=== PATIENT | male | born 1980 | race Caucasian/White ===

== ENCOUNTER 2025-01-06 00:47 | Day surgery (SDC) | payer BC, SELFPAY ==
[2025-01-01 14:04] VITALS: BMI 25.8
--- NOTE | 2025-01-01 14:11 | PC.NURSE ---
[facility] has started construction of its new state of the art ER which will open Spring 2026. With this, we anticipate parking may be a challenge for some our surgical patients and families. Parking spaces are limited but are available for all Surgical, obstetrics, and ER patients sharing this lot. If you arrive and find you are having a hard time finding a parking space, please note that we understand the challenges, please drive around the hospital and park near Hospital Entrance 1. When you enter this entrance, you can ask a volunteer to direct or take you back to the surgical waiting area to check in. We appreciate everyone?s understanding of these expected challenges while we build for your future. Report to the Outpatient Waiting Room, entrance under the green pavilion located off [address], at time _1100_ on date _[id number]_. Planned Procedure Time: _1pm_.? Time changes happen often and if your time is changed the preop area will call you the afternoon before. - You and your visitor will be asked to self-screen and do not enter if you have any COVID symptoms. Please call surgeon if you need to reschedule. - A mask is optional within the hospital at this time. Clear liquid diet Monday before surgery. Patients may have clear liquids (water, carbonated beverages, clear teas, apple juice) until 3 hours prior to surgery with a maximum of 20 ounces between Midnight and 10am.. - No food from midnight Monday until time of surgery and no smoking, or chewing tobacco (or any form of nicotine). No chewing gum, candy or mints. Take Dulcolax tabs 5mg 2 tablets Monday night and Monday night. Use Fleet enema Monday night and again Monday morning of surgery. Take only the following medications with a SIP of water on the morning of surgery: __None____ DO NOT STOP ANY OF YOUR OTHER PRESCRIPTION MEDICATIONS PRIOR TO SURGERY EXCEPT THE FOLLOWING Hold all vitamins and supplements for 3 days per anesthesiologist. Medications to discontinue per physician Date to take last dose Please no make-up, nail bengali, hairspray, perfume, deodorant, or body powder the day of surgery.? No jewelry (including any body piercings) or valuables the day of surgery, leave them at home.? Please take a shower or bath the night before, or the morning of, surgery with an antibacterial soap.? Wear comfortable, loose fitting clothing.? - Jewelry must be removed prior to entering the operating room.? Rings and piercings that are not removed may be cut off. - The hospital will not accept responsibility for valuables.? - Please leave all valuables, including medications, at home the day of surgery. If you are going home after surgery, a licensed batch mixing truck driver must drive you home.? - NO public transportation without another adult if you receive anesthesia. - We recommend that an adult stay with you for 24 hours following discharge. - We also recommend that you do not drive, make important decision, drink alcoholic beverages, or take any drugs that were not prescribed by your health care provider for at least 24 hours after your discharge time. Follow any additional instructions given to you from your surgeon. Telephone instructions given to ___Guillaume__and asked if any additional questions and then verbalized understanding. Patient advised to call surgeon office or pre surgery nurse liaison [phone] if any additional questions.
[2025-01-06] VITALS (9 sets, daily range): BP systolic 111–134; BP diastolic 69–87; PULSE 57–75; RESP 12–18; TEMP 36.1–36.4; O2SAT 97–100
--- NOTE | 2025-01-06 11:57 | WPDHPUPDATE1 ---
History and Physical Update Update Date/Time: 01/06/25 11:57 History and Physical has been reviewed, including an updated exam of the patient. There are NO changes in the patient's condition. Risks, benefits, and alternatives have been discussed and questions answered. Patient agrees to proceed with procedure.
[2025-01-06] MEDS: ACETAMINOPHEN 500 MG TABLET 1000 MG PO (12:03)
[2025-01-06] MEDS: LACTATED RINGERS 1,000 ML 30 ML IV CONT (12:05)
[2025-01-06] MEDS: KETOROLAC 15 MG/ML VIAL (*BKC) IV PUSH (12:10)
--- NOTE | 2025-01-06 12:36 | WPDANESEPPF ---
Anes - Initial Pre Proc Eval Procedure: Operation Date: 01/06/25 13:00 Proposed Procedures p Rectal Examination Under Anesthesia, Excision Thrombosed External Hemorrhoid, Proctosigmoidoscopy - Armen Hurtado MD Date/Time: 01/06/25 12:36 Surgeon: Armen Hurtado MD Pre Op Diagnosis: thrombosed external hemorrhoid Patient Data Age: 44 Gender: M Height: 1.83 m Weight: 85.3 kg Last Vital Signs Temp 97.6 F 01/06/25 11:35 Pulse 68 01/06/25 11:35 Resp 18 01/06/25 11:35 BP 126/81 01/06/25 11:35 Pulse Ox 97 01/06/25 11:35 O2 Del Method Room Air 01/06/25 11:35 Allergies Allergy/AdvReac Type Severity Reaction Status Date / Time No Known Allergies Allergy Unknown Verified 01/06/25 12:16 Home Medications ?Medication ?Instructions ?Recorded ?Confirmed ?Type No Home Medications 12/30/24 01/01/25 History Patient hx anesthesia problems: none Family hx anesthesia problems: none Results Review: All pre-operative results and documents have been reviewed as part of the pre-operative evaluation. [facility] Past Medical History Medical History Hypertension Surgical History Surgical History Hx of vasectomy 2012 Hx of knee surgery 2021 Family History Family History Father Malignant neoplasm of prostate Hypertension Social History Social History Years smoked: 10 Smoking status: Former smoker Tobacco type: cigarettes Smoking end date: 01/01/10 Alcohol intake: current Drinks per week: 2 Substance use: never Current Housing: Decline to Answer Concerned About Future Housing: Decline to Answer Difficulty Paying Gas/Electric Bills: Decline to Answer Difficulty Paying for Meds: Decline to Answer Currently Unemployed: Decline to Answer Education: Decline to Answer Difficulty w/ Childcare or Family Care: Decline to Answer Occupation/Education: occupation Additional occupation/education comments: [employer] Spiritual care concerns: No Anes - Eval Final PreProcedure Day of Procedure 01/06/25 12:36 Patient weight: normal Lungs: normal air movement Airway: Mallampati scale class II Neurological: alert and oriented Last oral intake: >/= 8 hours ASA classification: II Emergent: no Anesthetic plan: proceed Anesthesia type and monitoring: general ETT and standard monitoring Results Review: All pre-operative results and documents have been reviewed as part of the pre-operative evaluation. Ex smoker, quit approx . Active supervisor filling and packing, no cp or sob. Informed Consent: The patient's anesthetic plan and its attendant risks and benefits were discussed with the patient/family/POA. Questions were solicited and answers provided to the satisfaction of the patient/family/POA.
[2025-01-06] MEDS: ceFAZolin 2 GM in SODIUM CHLORIDE 0.9% IV 50 ML 100 ML IVPB (12:55)
--- NOTE | 2025-01-06 13:27 | S_PTH ---
PATIENT: Guillaume Stewart II LOC: [facility] U#:[id number] AGE/SX: 44/M ROOM: RE01/06/[address]: Armen Hurtado MD : 1980 BED: DIS: 01/06/2025 SPEC #: [id number] RECD: 01/06/25 13:50 STATUS: SYMONE REQ #: [id number] ARMAND: 01/06/25 13:[address]: Armen Hurtado DEPT: [facility] Surgical RECD BY: Dutch Fuentes ENTERED: 01/06/25 13:50 SP TYPE: Surgical OTHR DR: Jose Heart MD Tissues: A - Hemorroid Procedures: Hematoxylin and Eosin Stain Gross and Microscopic Level 3
--- NOTE | 2025-01-06 13:48 | W.PM.PROC2 ---
Procedure Note - Detailed Date of Procedure 01/06/25 Pre-op Diagnosis thrombosed external hemorrhoid Post-op Diagnosis Same (Perianal nodule) Procedure Performed Proctosigmoidoscopy to 19 cm, Excision 7 mm perianal nodule with 2 mm margins. 1.1 cm excision with simple closure Surgeon Armen Hurtado MD Event Specialist Cristal Reyes [facility] Anesthesia General and Local Indications Patient reports chronic mucous drainage from his rectum. About 6 weeks ago, after a bowel movement, he noticed a tender, painful perianal mass. Initially this was quite painful, but over about a 2 week period, its size diminished and it became painless, but still is tender. The mucous rectal drainage long precedes this episode and continues. He was seen in the office and a perianal nodule, presumably a thrombosed external hemorrhoid, was noted in the left posterior quadrant. No internal hemorrhoids or palpable mucosal lesions were noted. He is taken to surgery now for excision of the tender perianal nodule as well as proctosigmoidoscopy. Findings Proctosigmoidoscopy to 19 cm was negative. The nodule was fleshy with some erythematous aspects. It was not an obvious external hemorrhoid. No clot was seen. It was excised with 2 mm margins. No other perianal or anal canal lesions were noted. No hemorrhoids were noted Description of Procedure Patient was taken to surgery and induced into general anesthesia. He was then turned prone jenna-knife position. The buttocks were taped apart. Prep and drape was carried out. On inspection, the perianal nodule was again noted. Rigid proctosigmoidoscopy was then performed to 19 cm. No mucosal lesions or polyps were appreciated. Hill-King anoscope was were then used to carefully look at the anal canal for hemorrhoids or other mucosal abnormalities. None were seen. The perianal nodule was 0.7 by 0.4 cm. It was excised with a 2 mm margin. Cautery was used for hemostasis. The perianal wound was then closed with interrupted 3-0 chromic suture. Hemostasis was adequate. I again looked in the anal canal and saw no other abnormalities. The rectum was dressed was Xeroform gauze and fluffs. Medipore tape was placed and Promise panties were then placed. Patient was then returned to a supine position, awakened, and taken to recovery in good condition. Sponge and needle counts were correct x2. Estimated Blood Loss -5 Drains No Packing No Pathology Yes (Left posterior quadrant perianal nodule) Complications None Condition Stable Disposition PACU [facility] Billing Surgery - Charge Forward: Surgery Billing (Proctosigmoidoscopy, Excision 0.7 cm perianal nodule with 2 mm margins, 1.1 cm excision. Simple closure)
== END 2025-01-06 15:46 | disposition home or self-care (01) ==
PROVIDERS: PCP Emergency Medicine; Visit Provider Surgery
PROC: (CPT 45300; principal; 2025-01-06 13:00)
DX: L98.0 Pyogenic granuloma (principal); G89.18 Other acute postprocedural pain; I10 Essential (primary) hypertension; Z98.890 Other specified postprocedural states; Z87.891 Personal history of nicotine dependence; Z80.42 Family history of malignant neoplasm of prostate
CPT/HCPCS: 45300; 46922; 88304; J0690; A9270; J1100; J1885; J2003; J2250; J2405; J2704; J3010; J7120